=== PATIENT | female | born 1980 | race Caucasian/White ===

== ENCOUNTER 2018-05-01 19:05 | Emergency (ER) | payer OTHER ==
[~2018-05-01] VITALS: Ht 175.3 cm; Wt 90.9 kg
[2018-05-01] MEDS ORDERED: GABA-529 PO (19:51)
[2018-05-01] MEDS ORDERED: AMLO-511 PO (19:51)
[2018-05-01] MEDS ORDERED: VENL50TA44 PO (19:51)
[2018-05-01] MEDS ORDERED: PREM625 PO (19:51)
[2018-05-01 21:27] VITALS: BP 127/75
== END 2018-05-01 21:36 | disposition home or self-care (01) ==
LOC: EMS 19:06
DX: S93.402A Sprain of unspecified ligament of left ankle, initial encounter (principal); I10 Essential (primary) hypertension; W19.XXXA Unspecified fall, initial encounter; Y93.89 Activity, other specified; Y92.89 Other specified places as the place of occurrence of the external cause; Y99.8 Other external cause status
CPT/HCPCS: 29540; 99284